=== PATIENT | male | born 1935 | race Caucasian/White ===

== ENCOUNTER → 2020-05-09 | Outpatient (CLI) | payer MEDICARE, OTHER ==
[~2020-05-09] MED LIST: CHOL10002 PO; Coumadin2.5 MG PO; HYDSUL200 PO; METO100ER PO; Prednisone50 MG PO; RANI150 PO; TAMS.4ER PO; ZESTORETIC 20-121 EA PO
== END | disposition home or self-care (01) ==
LOC: PLD 13:55 → LAB SHORT 13:55
DX: D48.5 Neoplasm of uncertain behavior of skin (principal); D22.5 Melanocytic nevi of trunk
CPT/HCPCS: 88305

== ENCOUNTER 2023-07-18 16:04 | Emergency (ER) | payer MEDICARE, OTHER ==
[~2023-07-18] VITALS: Ht 180.3 cm; Wt 90.7 kg
[2023-07-18 19:20] LABS: Influenza A, PCR NEGATIVE (NEGATIVE); Influenza B, PCR NEGATIVE (NEGATIVE); Resp Syncytial Virus, PCR NEGATIVE (NEGATIVE); SARS-Cov-2 (COVID-19) PCR, MMC NEGATIVE (NEGATIVE)
[2023-07-18 19:44] LABS: Magnesium, Blood 1.7 mg/dL (1.6-2.4)
[2023-07-18 19:46] LABS: Bun/Creatinine Ratio 12.6 (12.0-20.0); Calcium, Blood 8.4 mg/dL (8.5-10.1); Creatinine, Blood 1.19 mg/dL (0.60-1.20); Phosphorus, Blood 2.5 mg/dL (2.5-4.9); Potassium, Blood 3.2 mmol/L (3.5-5.5); Thyroid Stimulating Hormone 2.33 uIU/mL (0.360-4.800)
[2023-07-18 20:34] LABS: Prothrombin Time Results 44.5 Sec (9.7-11.5)
[2023-07-18 20:37] LABS: International Normalized Ratio 4.62
[2023-07-18 22:07] VITALS: BP 145/84
== END 2023-07-18 22:10 | disposition home or self-care (01) ==
LOC: ER 16:04
PROVIDERS: Emergency Medicine
DX: E87.1 Hypo-osmolality and hyponatremia (principal); Z79.899 Other long term (current) drug therapy; Z79.01 Long term (current) use of anticoagulants; I48.91 Unspecified atrial fibrillation
CPT/HCPCS: 0241U; 80048; 83735; 84100; 84443; 85610; 85730; 93005; 93010; 99284

== ENCOUNTER 2024-07-28 11:33 | Emergency (ER) | payer MEDICARE, OTHER ==
[~2024-07-28] VITALS: Ht 180.3 cm; Wt 90.7 kg
[2024-07-28 11:36] VITALS: BP 171/87
[2024-07-28] MEDS ORDERED: LISI20 PO (11:42)
[2024-07-28] MEDS ORDERED: Oxymetazoline 0.05% Nasal Relief Spray 15mL BTL ONE (12:00)
[2024-07-28 12:25] LABS: International Normalized Ratio 2.51; Prothrombin Time Results 25.1 Sec (9.7-11.5)
[2024-07-28] MEDS ORDERED: Silver Nitr/Potassium Nitrate 1 EA APPL TOP ONE (12:35)
== END 2024-07-28 13:26 | disposition home or self-care (01) ==
LOC: ER 11:33
PROVIDERS: Emergency Medicine
DX: R04.0 Epistaxis (principal); Z79.52 Long term (current) use of systemic steroids; Z79.01 Long term (current) use of anticoagulants
CPT/HCPCS: 30903; 85610; 99283-25; A9270

== ENCOUNTER 2024-11-17 10:28 | Day surgery (SDC) | payer MEDICARE, OTHER ==
[2024-11-17] VITALS (13 sets, daily range): BP systolic 75–162; BP diastolic 46–104
[~2024-11-17] VITALS: Ht 180.3 cm; Wt 95.0 kg
[~2024-11-17 10:28] MED LIST changes: +CHLO25B PO; +FAMO20 PO; +GLUCHON PO; +LISI20 PO; +POTA10T PO; +PRED5 PO; +WARF5 PO; +ZESTRIL40 MG PO
--- NOTE | 2024-11-17 13:06 | NUR ---
PT UPDATED ON WAIT TIME. VSS. NADN. PT RESTING COMFORTABLY AT THIS TIME.
[2024-11-17] MEDS ORDERED: Verapamil HCL 2.5 MG/ML 2ML Injection ONE (14:52)
[2024-11-17] MEDS ORDERED: NS 250 ML IV ONE (14:53)
[2024-11-17] MEDS ORDERED: Heparin Sodium 1000 Units/ML 10ML MDV ONE (14:53)
[2024-11-17] MEDS ORDERED: NS 1,000 ML IV ONE ×2 (14:53→15:01)
[2024-11-17] MEDS ORDERED: Nitroglycerin 2 MG/20 ML BTL ONE (14:53)
[2024-11-17] MEDS ORDERED: Aspirin 325 MG Tab ONE (14:53)
[2024-11-17] MEDS ORDERED: Midazolam HCl 1MG / ML 2ML Vial ONE (15:01)
[2024-11-17] MEDS ORDERED: FentaNYL Citrate 50 MCG/ML 2 ML Injection ONE (15:01)
[2024-11-17] MEDS ORDERED: HydrALAZINE HCl 20 MG / ML 1ML Vial ONE (15:19)
[2024-11-17] MEDS ORDERED: NS 500 ML IV ONE (16:29)
--- NOTE | 2024-11-17 16:42 | NUR ---
250 ML BOLUS STARTED PER VERBAL ORDER FROM MD CHU FOR HYPOTENSION
--- NOTE | 2024-11-17 17:00 | NUR ---
INITIAL 2 CC OF AIR REMOVED FROM RIGHT RADIAL TR BAND. SITE C/D/I SOFT/NONTENDER, NO EVIDENCE OF BLEEDING. PATIENT SITTING UPRIGHT IN RECLINER, TOLERATING PO INTAKE WELL.
--- NOTE | 2024-11-17 17:11 | NUR ---
250 ML BOLUS COMPLETED. BP STABLE.
--- NOTE | 2024-11-17 17:20 | NUR ---
ALL AIR REMOVED FROM RIGHT RADIAL TR BAND. SITE C/D/I SOFT/NONTENDER, NO EVIDENCE OF BLEEDING. VSS ON RA. PATIENT TOLERATING PO INTAKE WELL. PATIENT DENYING ANY PAIN.
--- NOTE | 2024-11-17 18:07 | NUR ---
PT VERBALIZES UNDERSTANDING WRITTEN AND VERBAL INSTRUCTIONS. DENIES QUESTIONS. VSS. PT CLEARED BY MD TO DC HOME. 250 CC NS BOLUS INFUSED, TOLERATES WELL. VSS. NADN. PT TR BAND REMOVED. CLOTH DOT APPLIED WITH SPLINT. PT IV DC'. CATH INTACT. PRESSURE DSG APPLIED NO BLEEDING./ PT DC TO HOME VIA WC BY SON
== END 2024-11-17 18:10 | disposition home or self-care (01) ==
LOC: MHTC 10:28
DX: I35.0 Nonrheumatic aortic (valve) stenosis (principal); I25.10 Atherosclerotic heart disease of native coronary artery without angina pectoris; I27.22 Pulmonary hypertension due to left heart disease; I50.1 Left ventricular failure, unspecified; I12.9 Hypertensive chronic kidney disease with stage 1 through stage 4 chronic kidney disease, or unspecified chronic kidney disease; N18.30 Chronic kidney disease, stage 3 unspecified; E78.5 Hyperlipidemia, unspecified; I48.91 Unspecified atrial fibrillation; M06.9 Rheumatoid arthritis, unspecified; I87.2 Venous insufficiency (chronic) (peripheral); I77.810 Thoracic aortic ectasia; I73.9 Peripheral vascular disease, unspecified; Z79.52 Long term (current) use of systemic steroids; Z79.01 Long term (current) use of anticoagulants; Z79.899 Other long term (current) drug therapy; Z88.8 Allergy status to other drugs, medicaments and biological substances
CPT/HCPCS: 76937; 93460; 99152; A9270; C1769; C1887; C1894; J0360; J1644; J2250; J3010; J7030; J7040; J7050; Q9967

== ENCOUNTER 2025-02-14 09:35 | Emergency (ER) | payer MEDICARE, OTHER ==
[~2025-02-14] VITALS: Ht 185.4 cm; Wt 95.2 kg
[2025-02-14 09:55] LABS: BASOPHILS ABSOLUTE AUTO 0.08 K/mm3 (0.00-0.23); BASOPHILS PERCENT AUTO 1 % (0-2); EOSINOPHILS ABSOLUTE AUTO 0.15 K/mm3 (0.00-0.68); EOSINOPHILS PERCENT AUTO 1 % (0-6); Hematocrit 43.4 % (37.0-53.0); IMMATURE GRAN ABSOLUTE AUTO 0.04 K/mm3 (0.00-0.10); IMMATURE GRAN PERCENT AUTO 0 % (0-1); LYMPHOCYTES ABSOLUTE AUTO 1.64 K/mm3 (0.84-5.20); LYMPHOCYTES PERCENT AUTO 15 % (21-46); MONOCYTES ABSOLUTE AUTO 1.28 K/mm3 (0.16-1.47); MONOCYTES PERCENT AUTO 12 % (4-13); Mean Corpuscular HGB Conc 34.6 g/dL (31.5-36.5); Mean Corpuscular Volume 93 fL (80-100); Mean Platelet Volume 9.7 fL (9.1-12.4); NEUTROPHILS ABSOLUTE AUTO 7.75 K/mm3 (1.96-9.15); NEUTROPHILS PERCENT AUTO 71 % (41-73); Platelet Count 177 K/mm3 (150-400); RDW Coefficient Variation 12.6 % (11.7-14.2); RDW Standard Deviation 42.9 fL (35.1-46.3); Red Blood Cell Count 4.69 M/mm3 (4.30-5.90); White Blood Cell Count 10.94 K/mm3 (4.00-11.30)
[2025-02-14 10:24] LABS: Albumin, Blood 3.4 g/dL (3.4-5.0); Albumin/Globulin Ratio 1.1 (0.8-1.8); Bilirubin, Total 1.4 mg/dL (0.1-1.0); Bun/Creatinine Ratio 18.5 (12.0-20.0); Calcium, Blood 8.6 mg/dL (8.5-10.1); Creatinine, Blood 0.97 mg/dL (0.60-1.20); Globulin, Blood 3.2 g/dL (2.2-4.0); Total Protein, Blood 6.6 g/dL (6.4-8.2)
[2025-02-14 13:45] VITALS: BP 150/87
== END 2025-02-14 14:10 | disposition short-term general hospital (02) ==
LOC: ER 09:35
PROVIDERS: Emergency Medicine
DX: I49.5 Sick sinus syndrome (principal); I48.91 Unspecified atrial fibrillation; I10 Essential (primary) hypertension; Z98.890 Other specified postprocedural states; Z88.2 Allergy status to sulfonamides; Z79.899 Other long term (current) drug therapy; Z79.01 Long term (current) use of anticoagulants
CPT/HCPCS: 71045; 80053; 85025; 93005; 93010; 99285-25